=== PATIENT | female | born 1970 | race Two or more races ===

== ENCOUNTER 2018-09-29 15:18 | Emergency (ER) | payer OTHER ==
[~2018-09-29] VITALS: Ht 162.6 cm; Wt 88.5 kg
[2018-09-29] MEDS ORDERED: ONDANSETRON ODT 4 MG ONE (15:46)
[2018-09-29] MEDS ORDERED: ONDANSETRON ODT 4 MG PO ONE (16:00)
--- NOTE | 2018-09-29 16:27 | NUR ---
Xray awaiting [facility]
[2018-09-29 16:29] LABS: BASOPHILS # (AUTO) 0.04 x10^3/uL (0-0.1); BASOPHILS % (AUTO) 1 % (0-1); EOSINOPHILS # (AUTO) 0.13 x10^3/uL (0-0.4); EOSINOPHILS % (AUTO) 2 % (1-7); LYMPHOCYTES % (AUTO) 31 % (22-44); MD NO; MEAN CORPUSCULAR HEMOGLOBIN 31.9 pg (27.0-34.8); MEAN CORPUSCULAR HGB CONC 34.2 g/dL (32.4-35.8); MEAN CORPUSCULAR VOLUME 93.1 fL (80-100); MEAN PLATELET VOLUME 9.1 fL (7.4-10.4); MONOCYTES # (AUTO) 0.38 x10^3/uL (0.2-0.8); MONOCYTES % (AUTO) 5 % (2-9); NEUTROPHILS # (AUTO) 4.39 x10^3/uL (1.8-6.8); NEUTROPHILS % (AUTO) 62 % (42-75); PLATELET COUNT 264 x10^3/uL (130-400); RED BLOOD COUNT 4.58 x10^6/uL (3.82-5.3); RED CELL DISTRIBUTION WIDTH 12.7 % (9.6-15.2)
[2018-09-29 16:42] LABS: ALANINE AMINOTRANSFERASE 51 U/L (12-78); ALBUMIN 3.4 g/dL (3.4-5.0); ANION GAP 8 mmol/L (5-15); CALCIUM 8.6 mg/dL (8.5-10.1); CHLORIDE 108 mmol/L (98-107); CREATININE 0.74 mg/dL (0.55-1.02)
--- NOTE | 2018-09-29 16:42 | NUR ---
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
[2018-09-29 16:47] LABS: ALKALINE PHOSPHATASE 47 U/L (45-117); BILIRUBIN,TOTAL 0.6 mg/dL (0.2-1.0); TOTAL PROTEIN 7.7 g/dL (6.4-8.2)
--- NOTE | 2018-09-29 17:07 | NUR ---
PT BACK FROM XRAY, URINE COLLECTED/SENT TO LAB. PT STATES SHE FEELS BETTER AT THIS TIME. NO VOMITING, SLIGHT NAUSEA (ZOFRAN GIVEN IN TRIAGE). CALL LIGHT WITHIN REACH.
[2018-09-29 17:13] LABS: MICROSCOPIC AUTO
[2018-09-29 17:15] VITALS: BP 126/68
[2018-09-29 17:16] LABS: CULTURE INDICATED? YES
--- NOTE | 2018-09-29 18:59 | NUR ---
RESULTS OF CT BACK, PT FOR RECHECK.
--- NOTE | 2018-09-29 19:00 | NUR ---
REPORT RECEIVED FROM JENNY ADAM
--- NOTE | 2018-09-29 19:16 | NUR ---
pt and pt's family memeber given dc instructions and script. pt's family member educated regarding dc medication. pt amb to dc with steady gait. no acute distress at dc.
== END 2018-09-29 19:17 | disposition home or self-care (01) ==
LOC: ED 18:40
DX: R10.84 Generalized abdominal pain (principal); E11.9 Type 2 diabetes mellitus without complications
CPT/HCPCS: 36415; 74021; 74176; 76700; 80053; 81001; 83690; 84703; 85025; 87086; 99284; Q0162